=== PATIENT | male | born 1960 | race Caucasian/White ===

== ENCOUNTER 2021-07-25 17:21 | Emergency (ER) | payer SELFPAY ==
[~2021-07-25] VITALS: Ht 172.7 cm; Wt 90.4 kg
[2021-07-25 17:21] VITALS: BP 211/101
--- NOTE | 2021-07-25 17:21 | NUR ---
[facility] ambulance, patient came from home. Per medics patient was sitting at table eating and became nauseated and begun to vomit. Patient placed into room 6 and on monitor. NIH scale Negative (score 0). MD notified for ALOC.
--- NOTE | 2021-07-25 17:23 | NUR ---
18G placed into right FA, 18G left AC.
--- NOTE | 2021-07-25 17:24 | NUR ---
BLOOD COLLECTED AND TAKEN TO LAB
--- NOTE | 2021-07-25 17:25 | NUR ---
Zofran given IVP for Nausea
[2021-07-25] MEDS ORDERED: ONDANSETRON 4 MG/2 ML VIAL IVP ONE (17:35)
--- NOTE | 2021-07-25 17:35 | NUR ---
CODE STROKE CALLED BY DR CARRILLO. CT CALLED
--- NOTE | 2021-07-25 17:40 | NUR ---
PT TAKEN TO CT VIA [facility]. PRIMARY NURSE ACCOMPANIED BY [employer]. PT ATTACHED TO [facility]
[2021-07-25 17:47] LABS: BASOPHILS % (AUTO) 0.4 % (0.0-2.0); EOSINOPHILS # (AUTO) 0.2 K/uL (0-0.4); EOSINOPHILS % (AUTO) 1.7 % (0.0-4.0); HEMATOCRIT 41.5 % (36-52); HEMOGLOBIN 14.2 g/dL (12.0-18.0); LYMPHOCYTES # (AUTO) 3.8 K/uL (2.0-11.5); MEAN CORPUSCULAR HEMOGLOBIN 32 pg (27-31); MEAN CORPUSCULAR HGB CONC 34 g/dL (33-37); MEAN CORPUSCULAR VOLUME 94.2 fL (80-94); MONOCYTES # (AUTO) 0.8 K/uL (0.8-1.0); NEUTROPHILS # (AUTO) 5.8 K/uL (1.8-7.7); NEUTROPHILS % (AUTO) 54.9 % (42.2-75.2); PLATELET COUNT (AUTO) 200 K/uL (140-450); RED CELL DISTRIBUTION WIDTH 12.9 % (11.6-13.7); WHITE BLOOD COUNT (AUTO) 10.7 K/uL (4.8-10.8)
--- NOTE | 2021-07-25 17:51 | NUR ---
PT BACK FROM CT AND CONNECTED TO MONITOR
--- NOTE | 2021-07-25 18:05 | NUR ---
phone number [phone] (Nisha)
[2021-07-25 18:09] LABS: ALBUMIN 4.1 g/dL (3.4-5.0); ANION GAP 13.7 (8-16); CARBON DIOXIDE 24.9 mmol/L (21-32); CREATININE 0.9 mg/dL (0.6-1.3); TOTAL BILIRUBIN 0.5 mg/dL (0.0-1.0)
[2021-07-25 18:12] LABS: POTASSIUM 2.6 mmol/L (3.5-5.1)
--- NOTE | 2021-07-25 18:25 | NUR ---
Neuro assessed patient remotely from ([facility])
--- NOTE | 2021-07-25 18:31 | NUR ---
Called to obtain list of medication taken at home.
--- NOTE | 2021-07-25 18:32 | NUR ---
Critical Lab - K+ 2.6, made aware in person
[2021-07-25] MEDS ORDERED: TENECTEPLASE 50 MG KIT IV ONE (18:35)
--- NOTE | 2021-07-25 18:35 | NUR ---
Patient to transfer to [place] per MD
--- NOTE | 2021-07-25 18:46 | NUR ---
Spoke with Aimee, updates given and son aware patient is leaving for [place]. Phone number for contact is [phone]
[2021-07-25] MEDS ORDERED: PENICILLIN G BENZATHINE L-A 0.6 MU/ML SYR IM ONE (18:56)
--- NOTE | 2021-07-25 18:57 | NUR ---
Transport arrrived, report given at bedside. Patient to be taken by [facility] (ACLS) to [place].
[2021-07-25] MEDS ORDERED: PIPERACILLIN/TAZOBACTAM 3.375 GM VIAL IV ONE (19:00)
[2021-07-25 19:06] VITALS: BP 179/87
--- NOTE | 2021-07-25 19:08 | NUR ---
Patient to be transferred to [place] ED Code Stroke. Is being transferred due to Code Stroke. Receiving facility has accepting physician and available space. ER physician has signed transfer form. Patient or responsible libertarian has agreed to transfer and signed form. Patient belongings inventoried and will be sent with patient. Copy of nursing notes, lab reports, EKG, Physicians Orders and X-rays to be sent with patient. Report called to ED MD to MD at receiving facility. ambulance service has been called for transfer ([facility])
[2021-07-25 19:37] LABS: PROTHROMBIN TIME 10.4 secs (10.8-13.4)
== END 2021-07-25 19:08 | disposition short-term general hospital (02) ==
LOC: MED 17:21
DX: I63.9 Cerebral infarction, unspecified (principal); R11.2 Nausea with vomiting, unspecified; I10 Essential (primary) hypertension
CPT/HCPCS: 36415; 70450; 71045; 80053; 83690; 83880; 84484; 85025; 85610; 85730; 93005; 96374; 99285; J2405; J0561; J2543